=== PATIENT | male | born 1965 | race Two or more races ===

== ENCOUNTER 2016-08-11 17:53 | Emergency (ER) | payer MEDICAID ==
--- NOTE | 2016-08-11 19:53 | ER Document Report ---
ED General - General Chief Complaint: Laceration Stated Complaint: LEFT THUMB INJURY Mode of Arrival: Ambulatory Information source: Patient Notes: Patient is a 51 yo male who presents with laceration to right distal thumb that occurred today around 1100 AM. He states he was using a table saw that cut his finger. He is unsure of last tetanus. He denies any swelling, redness, warmth or drainage. Bleeding controlled at this time. He has not had any pain medication. TRAVEL OUTSIDE OF THE [place] IN LAST 30 DAYS: No - Related Data Allergies/Adverse Reactions: oxycodone HCl [From Percocet] Adverse Reaction (Verified 08/11/16 18:56) Past Medical History - General Information source: Patient - Social History Smoking Status: Unknown if Ever Smoked Family History: Reviewed & Not Pertinent Patient has suicidal ideation: No Patient has homicidal ideation: No - Past Medical History Cardiac Medical History: Reports: Hx Hypercholesterolemia, Hx Hypertension - On no medications Endocrine Medical History: Reports: Hx Diabetes Mellitus Type 1, Hx Diabetes Mellitus Type 2 Renal/ Medical History: Reports: Hx Kidney Stones. Denies: Hx Peritoneal Dialysis - Immunizations Immunizations up to date: Yes Hx Diphtheria, Pertussis, Tetanus Vaccination: Yes Review of Systems - Review of Systems Constitutional: See HPI EENT: No symptoms reported Cardiovascular: No symptoms reported Respiratory: No symptoms reported Gastrointestinal: No symptoms reported Genitourinary: No symptoms reported Male Genitourinary: No symptoms reported Musculoskeletal: No symptoms reported Skin: See HPI Hematologic/Lymphatic: No symptoms reported Neurological/Psychological: No symptoms reported Physical Exam - Vital signs Vitals: Temp Pulse Resp BP Pulse Ox 98.4 F 92 16 131/81 H 97 08/11/16 18:59 08/11/16 18:59 08/11/16 18:59 08/11/16 18:59 08/11/16 18:59 Interpretation: Hypertensive - Notes Notes: PHYSICAL EXAM: CONSTITUTIONAL: Alert and oriented, well-appearing and in no acute distress. HENT: Normocephalic, atraumatic. Moist mucous membranes. EYES: Pupils equal round and reactive to light, EOM intact. Sclera anicteric, conjunctiva are normal. No entrapment. HEART: Regular rate and rhythm without murmurs. LUNGS: CTAB and equal. No wheezes, rales or rhonchi. EXTREMITIES: Normal range of motion, no pitting edema. No cyanosis. Cap Refill < 3 seconds. NEURO: Cranial nerves grossly intact. Normal sensory/motor exams. PSYCH: Normal mood, normal affect. SKIN: Warm and dry. Normal turgor. No rashes or lesions noted. 2 cm curved superficial laceration to distal pulp of left thumb, bleeding controlled. Course - Re-evaluation Re-evalutation: 08/11/16 20:11 Patient seen and examined. Will update tetanus. Laceration repaired with sutures. Patient tolerated well. Discussed return instructions, advised to return in 10 days for suture removal or sooner if signs of infection. At this time, will discharge with return precautions and follow-up recommendations. Verbal discharge instructions given at the bedside and opportunity for questions given. Medication warnings reviewed. Patient is in agreement with this plan and has verbalized understanding of return precautions and the need for primary care follow-up in the next 24-72 hours. - Vital Signs Vital signs: Temp Pulse Resp BP Pulse Ox 98.4 F 92 16 131/81 H 97 08/11/16 18:59 08/11/16 18:59 08/11/16 18:59 08/11/16 18:59 08/11/16 18:59 Procedures - Laceration/Wound Repair Left Thumb Time completed: 21:15 Wound length (cm): 2 Wound's Depth, Shape: Superficial, Irregular Laceration pre-procedure: Sterile drapes applied, Shur-Clens applied Anesthetic type: 1% Lidocaine Volume Anesthetic (mLs): 7 Wound explored: Clean Irrigated w/ Saline (mLs): 30 Wound Repaired With: Sutures Suture Size/Type: 4:0, Nylon Number of Sutures: 6 Layer Closure?: No Post-procedure NV exam normal: Yes Complications: No Discharge - Discharge Clinical Impression: Laceration of thumb Qualifiers: Encounter type: initial encounter Laterality: left Qualified Code(s): S61.012A - Laceration without foreign body of left thumb without damage to nail, initial encounter Condition: Stable Disposition: HOME, SELF-CARE Additional Instructions: LACERATION CARE: Your laceration has been sutured to keep the skin edges aligned during healing. The time of suture removal depends on the nature and location of your cut. Please follow the care instructions the doctor has outlined for you and return for further care, according to the schedule you've been given. Keep the wound and dressing clean. Unless you were told otherwise, you may shower daily, blotting the wound dry with a clean, unused towel. At other times, If the dressing gets wet or blood soaked, remove it and blot the wound dry, then reapply a new dressing. Unless you were instructed otherwise, dressings should be changed at least daily. If any signs of infection occur (swelling, redness, drainage, increasing tenderness, red streaks, tender lumps in the armpit or groin above the laceration, or fever), see the doctor immediately. SOAP CLEANSING: Gently wash the wound daily using a mild soap (like Ivory, Phisoderm, Neutrogena). Use warm water, rubbing gently until all debris, ooze, and crusting have been washed from the wound. Allow to dry briefly (about 10 minutes) after cleaning. Repeat this cleansing at least three times a day for the first two days and then once or twice a day. ANTIBIOTIC OINTMENT PROTECTION: Your wounds are such that dressing them is not practical or optional. After cleansing, you should apply a thin coating of antibiotic ointment ( Bacitracin, not Neosporin) to the wounds at least three times daily. This lessens infection risk, and may decrease the amount of scarring. Use a q-tip or dull butter knife, not your finger, to apply this ointment. Any debris or ooze which builds up in the ointment should be gently rubbed off with a sterile gauze pad. Harder crusting may need to be gently scrubbed off with a clean wash cloth with soap and warm water, perhaps applying a warm, wet wash cloth to the wound for ten minutes first. Development of redness, severe itching, or blistering may mean allergy to the ointment. See the doctor. TETANUS IMMUNIZATION GIVEN: You have been given an immunization against tetanus. Please record this in your records. In general, a booster is needed only once every 10 years. The tetanus shot protects against tetanus or "lockjaw," which is a complication of certain wound infections (the tetanus shot cannot protect against the actual infection). The immunization site may become warm and red due to local reaction. If this occurs, apply warm compresses and take aspirin or ibuprofen to reduce inflammation and discomfort. Return for evaluation if the reaction becomes severe. FOLLOW-UP CARE: Please return or see your regular doctor in __5___ days for an infection check and dressing change. Your sutures should be removed in __10___ days. To facilitate a timely removal of your sutures, you may return to the Emergency Department at [facility]. You do not need to call for an appointment, but the best time to come in for suture removal is early in the morning. If you have been referred to another physician for follow-up care, call that physicians office for an appointment as you were instructed. If you experience a significant change in your laceration, or if you are concerned there may be an infection (swelling, redness, drainage, increasing tenderness, red streaks, tender lumps in the armpit or groin above the laceration, or fever) , return to the Emergency Department immediately re-evaluation. Forms: Elevated Blood Pressure
[2016-08-11] MEDS ORDERED: LIDOCAINE 4%/TETRACAINE 0.5%/EPI 0.18% 5 ML TOPICAL SOLN TOP ONE (20:02)
[2016-08-11] MEDS ORDERED: LIDOCAINE 1% INJ-PF (10 MG/ML) 30 ML SDV INJ ONE (20:03)
[2016-08-11] MEDS ORDERED: DIPH/PERTUSS(ACELL)/TETANUS VAC/PF 0.5 ML SYR (>=10YO) IM ONE (20:08)
[2016-08-11] MEDS ORDERED: LIDOCAINE 1% INJ-PF (10 MG/ML) 30 ML SDV ONE (21:04)
[2016-08-11 21:47] VITALS: BP 127/77
== END 2016-08-11 21:47 | disposition home or self-care (01) ==
LOC: ER 17:53
PROC: 0HQGXZZ Repair Left Hand Skin, External Approach (ICD-10-PCS; principal; 2016-08-11)
DX: S61.012A Laceration without foreign body of left thumb without damage to nail, initial encounter (principal); W29.8XXA Contact with other powered hand tools and household machinery, initial encounter; I10 Essential (primary) hypertension; E10.9 Type 1 diabetes mellitus without complications; Z23 Encounter for immunization
CPT/HCPCS: 99283; 90471; 82962; 90715; 12001; J3490 ×2

== ENCOUNTER → 2016-10-16 | Outpatient (CLI) | payer MEDICAID ==
--- NOTE | 2016-10-16 15:48 | RADIOLOGY REPORT (SQ) ---
EXAM DESCRIPTION: LUMBAR SPINE COMPLETE COMPLETED DATE/TIME: 10/16/2016 1:15 pm REASON FOR STUDY: LUMBAGO WITH SCIATICA, UNSPECIFIED SIDE M54.40 LUMBAGO WITH SCIATICA, UNSPECIFIED SIDE COMPARISON: CT abdomen pelvis 01/08/2015 NUMBER OF VIEWS: Five views including obliques. TECHNIQUE: AP, lateral, oblique, and sacral radiographic images acquired of the lumbar spine. LIMITATIONS: None. FINDINGS: MINERALIZATION: Normal. SEGMENTATION: Normal. No transitional anatomy. ALIGNMENT: Normal. VERTEBRAE: Maintained height. No fracture or worrisome bone lesion. DISCS: Mild disc space loss of height at L3-4, L4-5 and L5-S1 POSTERIOR ELEMENTS: Lower lumbar facet arthropathy at L4-5 and L5-S1 [id number] HARDWARE: None in the spine. PARASPINAL SOFT TISSUES: Normal. PELVIS: Intact as visualized. No fractures or worrisome bone lesions. SI joints intact. OTHER: No other significant finding. IMPRESSION: Degenerative disc and posterior element changes in the lower lumbar spine. TECHNICAL DOCUMENTATION: JOB ID: [id number] [employer]- All Rights Reserved
== END ==
LOC: OD 12:38
PROVIDERS: ATTEND Internal Medicine
DX: M54.40 Lumbago with sciatica, unspecified side (principal)
CPT/HCPCS: 72110

== ENCOUNTER → 2016-10-22 | Outpatient (CLI) | payer OTHER ==
--- NOTE | 2016-10-22 20:50 | XCELERA REPORT ---
[address] [address] Transthoracic Echocardiogram Report Name: ZEINAB WHITAKER Age: 51 yrs Gender: Male : 1965 Patient Status: Outpatient Patient Location: Study Date: 10/22/2016 03:36 PM Height: 68 in Weight: 192 lb BSA: 2.0 m2 Reason For Study: HEART DISEASE Ordering Physician: LOCALMD, NO Performed By: Velia Alvarado Interpretation Summary Normal AV, MV.aortic root. LVEF is 35-40% with no LVH, global hypokinesis with no LV diastolic dysfunction, and LV enlargement LVESD 43 mm. RH is normal size, and function, with PM lead in RV and RA , unable to see TR. No LA enlargement. MMode/2D Measurements \T\ Calculations RVDd: 3.6 cm LVIDd: 5.2 cm FS: 17.0 % Ao root diam: 3.3 cm IVSd: 0.95 cm LVIDs: 4.3 cm EDV(Teich): 127.4 ml LVPWd: 0.92 cmESV(Teich): 82.3 ml Ao root area: 8.4 cm2 EF(Teich): 35.4 % LA dimension: 3.4 cm LVOT diam: 2.5 cm LVOT area: 4.7 cm2 Doppler Measurements \T\ Calculations MV E max ellis: MV P1/2t max ellis: Ao V2 max: LV V1 max P.1 cm/sec 108.1 cm/sec 114.0 cm/sec 3.2 mmHg MV P1/2t: 44.5 msec Ao max PG: LV V1 max: MVA(P1/2t): 4.9 cm2 5.2 mmHg 88.8 cm/sec MV dec slope: DONNELL(V,D): 3.7 cm2 710.7 cm/sec2 PA V2 max: 78.5 cm/sec PA max P.5 mmHg Left Ventricle The left ventricle is moderately dilated. There is normal left ventricular wall thickness. Left ventricular systolic function is moderately reduced. The Ejection Fraction estimate is 35-40%. Doppler measurements suggest normal left ventricular diastolic function. There is moderate global hypokinesis of the left ventricle. There is no thrombus. Right Ventricle The right ventricle is grossly normal size. There is a pacemaker lead in the right ventricle. The right ventricular systolic function is normal. Atria The right atrium is normal in size. There is a catheter/pacemaker lead seen in the right atrium. The left atrial size is normal. The interatrial septum is intact with no evidence for an atrial septal defect. Mitral Valve The mitral valve is grossly normal. There is no evidence of mitral valve prolapse. There is no mitral valve stenosis. There is a mild amount of mitral regurgitation. Aortic Valve The aortic valve is normal in structure and functions normally. The aortic valve opens well. The aortic valve is trileaflet. There is no aortic valvular vegetation. There is no aortic valve stenosis. No aortic regurgitation is present. Tricuspid Valve The tricuspid valve is not well visualized secondary to technical limitations. There is no tricuspid valve prolapse. There is no tricuspid stenosis. No tricuspid regurgitation. Pulmonic Valve The pulmonic valve is not well visualized. There is no pulmonic valvular regurgitation. Great Vessels The aortic root is normal size. Effusions There is no pericardial effusion. I WMSI = 1.94 % Normal = 6 Segments Size X - Cannot 1 - Normal 2 - 3 - Akinetic4 - 1-2 small Interpret Hypokinetic Dyskinetic 3-5 moderate 5 - 6-14 large Aneurysmal 15-16 diffuse : LOCALKS, NO > Destin Johnson
== END ==
LOC: SP 15:34
DX: I50.9 Heart failure, unspecified (principal); I44.7 Left bundle-branch block, unspecified; I42.9 Cardiomyopathy, unspecified; I10 Essential (primary) hypertension; G47.30 Sleep apnea, unspecified; E11.9 Type 2 diabetes mellitus without complications; E78.5 Hyperlipidemia, unspecified
CPT/HCPCS: 93306

== ENCOUNTER 2019-11-07 19:43 | Emergency (ER) | payer MEDICARE, MEDICAID ==
[2019-11-07 19:57] VITALS: BP 149/79
[2019-11-07] MEDS ORDERED: DIPH/PERTUSS(ACELL)/TETANUS VAC/PF 0.5 ML SYR (>=10YO) IM ONE (20:49)
--- NOTE | 2019-11-07 20:55 | ER Document Report ---
ED Hand/Wrist Injury - General Stated Complaint: INJURY TO LEFT INDEX/MIDDLE FINGER Time Seen by Provider: 11/07/19 20:48 Primary Care Provider: YARITZA BERMUDEZ MD [Primary Care Provider] - Follow up as needed Mode of Arrival: Ambulatory Information source: Patient Notes: Patient is a 54-year-old male comes the emergency room complaining of high-power pneumatic stapler with injury to the second and third digits of the left hand. This occurred yesterday. Patient states he was using a staple gun and it got jammed and he does not know why he put it against his 2 fingers and the trigger went off and he shot 1/4 inch staple into both fingers. He removed himself states that he thought it in his bone and did not hit a joint it was mostly into the soft tissues but today he is here because of swelling erythema and warmth to the fingers. TRAVEL OUTSIDE OF THE [place] IN LAST 30 DAYS: No - HPI Injury to: Index finger, Middle finger Onset: Yesterday Where: Home Timing: Constant Quality of pain: Achy, Burning Severity: Moderate Pain Level: 3 Context: High pressure injection - Related Data Allergies/Adverse Reactions: oxycodone HCl [From Percocet] Adverse Reaction (Verified 08/11/16 18:56) Past Medical History - General Information source: Patient - Social History Smoking Status: Never Smoker Cigarette use (# per day): No Chew tobacco use (# tins/day): No Smoking Education Provided: No Frequency of alcohol use: None Drug Abuse: None Lives with: Family Family History: Reviewed & Not Pertinent - Past Medical History Cardiac Medical History: Reports: Hx Hypercholesterolemia, Hx Hypertension - On no medications Endocrine Medical History: Reports: Hx Diabetes Mellitus Type 1, Hx Diabetes Mellitus Type 2 Renal/ Medical History: Reports: Hx Kidney Stones. Denies: Hx Peritoneal Dialysis - Immunizations Immunizations up to date: Yes Hx Diphtheria, Pertussis, Tetanus Vaccination: Yes Review of Systems - Review of Systems Constitutional: No symptoms reported EENT: No symptoms reported Cardiovascular: No symptoms reported Respiratory: No symptoms reported Gastrointestinal: No symptoms reported Genitourinary: No symptoms reported Male Genitourinary: No symptoms reported Musculoskeletal: See HPI Skin: See HPI Hematologic/Lymphatic: No symptoms reported Neurological/Psychological: No symptoms reported Physical Exam - Vital signs Vitals: Temp Pulse Resp BP Pulse Ox 99.2 F 101 H 18 149/79 H 97 11/07/19 19:53 11/07/19 19:53 11/07/19 19:53 11/07/19 19:53 11/07/19 19:53 Interpretation: Hypertensive, Tachycardic - Notes Notes: PHYSICAL EXAMINATION: GENERAL: Patient is a well-nourished well-developed 54-year-old male who is in no apparent distress on physical examination tonight. HEAD: Atraumatic, normocephalic. LUNGS: Breath sounds clear to auscultation bilaterally and equal. No wheezes rales or rhonchi. HEART: Regular rate and rhythm without murmurs Musculoskeletal: Examination patient very concerned as his left second and third fingers. Looking at the fingers themselves compared to the right there is some mild circumferential swelling on both the left index finger and the left middle finger. The area of concern is in between the PIP and the DIP on both fingers there is a puncture wound going into the index finger and the middle finger on the soft pad portion. Patient has full flexion-extension of the fingers he has good cap refill in nailbeds of both fingers. He has good opposition. His concern and what we are seeing is some moderate erythema throughout does not appear to be involving the joint space at this time. NEUROLOGICAL: Cranial nerves grossly intact. Normal speech, normal gait. Normal sensory, motor exams PSYCH: Normal mood, normal affect. SKIN: As stated earlier in the musculoskeletal patient has moderate erythema with some swelling to the second and third digits of the left hand. Course - Re-evaluation Re-evalutation: 11/07/19 22:23 Patient's x-rays were negative for any fractures or foreign bodies. Given that this was a puncture wound and high impact patient appears to be getting a cellulitis of the fingers at this point. I will place him on doxycycline for now. I am giving the name of the hand specialist on-call tonight he can contact his office tomorrow to follow-up with him if he continues to get worse. I am having him also do warm soaks with the hand. - Vital Signs Vital signs: Temp Pulse Resp BP Pulse Ox 99.2 F 101 H 18 149/79 H 97 11/07/19 20:47 11/07/19 19:53 11/07/19 19:53 11/07/19 19:53 11/07/19 19:53 Discharge - Discharge Clinical Impression: High-pressure injection injury of finger of left hand Qualifiers: Encounter type: initial encounter Qualified Code(s): S69.82XA - Other specified injuries of left wrist, hand and finger(s), initial encounter Cellulitis of finger Qualifiers: Laterality: left Qualified Code(s): L03.012 - Cellulitis of left finger Condition: Stable Disposition: HOME, SELF-CARE Instructions: MRSA Cellulitis ([facility]), Cellulitis ([facility]) Additional Instructions: Home and supervision which will be 1-3 times a day. I am giving you the gas plant specialist is unclear which is a hand specialist he can contact his office tomorrow for follow-up. I will probably take all the antibiotics. Should you experience increasing swelling and discomfort in the fingers of the joints of the fingers you need to be seen to be seen in emergency room or the gas plant specialist. Prescriptions: Doxycycline Monohydrate 100 mg PO BID #20 tablet Referrals: YARITZA BERMUDEZ MD [Primary Care Provider] - Follow up as needed BHASKAR FLORES DO [ACTIVE STAFF] - Follow up as needed
--- NOTE | 2019-11-07 21:23 | RADIOLOGY REPORT (SQ) ---
CLINICAL INDICATION: Pneumatic joni through second and third digits . . TECHNIQUE: 3 view(s) were obtained of the left hand. COMPARISON: None. FINDINGS: No acute displaced fracture is identified of the hand. Alignment appears anatomic. Osteoarthritis. Surrounding soft tissues are unremarkable. IMPRESSION: No evidence of acute bony injury to the hand. No retained radiopaque foreign body
[2019-11-07] MEDS ORDERED: DOXYCYCLINE HYCLATE 100 MG TABLET PO ONE (22:33)
== END 2019-11-07 22:45 | disposition home or self-care (01) ==
LOC: ER 19:43
DX: S61.231A Puncture wound without foreign body of left index finger without damage to nail, initial encounter (principal); S61.233A Puncture wound without foreign body of left middle finger without damage to nail, initial encounter; L03.012 Cellulitis of left finger; W29.8XXA Contact with other powered hand tools and household machinery, initial encounter; Y92.009 Unspecified place in unspecified non-institutional (private) residence as the place of occurrence of the external cause; Z23 Encounter for immunization
CPT/HCPCS: 99283; 90471; 73130; 90715; A9270